=== PATIENT | male | born 1995 | race Caucasian/White ===

== ENCOUNTER 2017-07-02 18:05 | Emergency (ER) | payer OTHER ==
[2017-07-02] MEDS ORDERED: PROPARACAINE 0.5% 15 ML OPHT DROP ONE (18:11)
[2017-07-02] MEDS ORDERED: PROPARACAINE 0.5% 15 ML OPHT DROP LEFTEYE ONE (18:15)
[2017-07-02] MEDS ORDERED: FLUORESCEIN SODIUM 1 MG STRIP OP ONE (18:20)
--- NOTE | 2017-07-02 19:06 | EDPHY ---
H & P Stated Complaint: Solder in left eye Time Seen by Provider: 07/02/17 18:56 HPI/ROS: CHIEF COMPLAINT: Solder in left eye HISTORY OF PRESENT ILLNESS: The patient is a healthy 22 y/o male who arrives with his friend complaining of left eye pain and blurry vision after getting solder in his eye at work. He was soldering in the ceiling hanging upside down and solder fell into his eye. He was not wearing safety glasses. He had immediate pain and blurry vision in his left eye. Associated with excessive tearing. He denies any other injuries. He is normally healthy. - Personal History Current Tetanus Diphtheria and Acellular Pertussis (TDAP): Unsure - Medical/Surgical History PMH: Denies Hx Asthma: No Hx Chronic Respiratory Disease: No Hx Diabetes: No Hx Cardiac Disease: No Hx Renal Disease: No Hx Cirrhosis: No Hx Alcoholism: No Hx HIV/AIDS: No Hx Splenectomy or Spleen Trauma: No Other PMH: Ortho - Social History Smoking Status: Current every day smoker Additional Social History: Smoker. This injury occurred while at work. Friend at bedside. - Physical Exam Exam: General Appearance: Alert, appears in pain Eyes: Visual Acuity: 20/50 left eye - from Nurse's notes. Lids: no proptosis, no periorbital erythema or swelling, no vesicles Conjunctivae: Erythema on left, no discharge Pupils: equal round and reactive to light EOMI Cornea: Left eye: Irregularly-shaped piece of solder extending from 9 o'clock position to 12 o'clock position on cornea, does not cover pupil. Slit lamp exam deferred to ophthalmology. Respiratory: Normal respiratory rate Neurological: A&O, nonfocal Skin: Warm and dry, no rash Psychiatric: Mood and affect normal Constitutional: Initial Vital Signs Temperature (C) 37.4 C 07/02/17 18:07 Heart Rate 101 H 07/02/17 18:07 Respiratory Rate 18 07/02/17 18:07 Blood Pressure 159/108 H 07/02/17 18:07 O2 Sat (%) 99 07/02/17 18:07 O2 Delivery Mode Room Air Allergies/Adverse Reactions: No Known Allergies Allergy (Unverified 07/02/17 18:13) Home Medications: Medication Instructions Recorded Hydrocodone/APAP 5/325 [[place] 1 - 2 tab PO Q4H PRN #15 tab 07/02/17 5/325] Medical Decision Making ED Course/Re-evaluation: This is a healthy 22 y/o male who presents with a large piece of solder in his left cornea with associated pain and blurred vision. No evidence of globe disruption. Proparacaine drops and PO [place] administered for pain. Plan to consult ophthalmology prior to manual removal of metal. 1909: Consulted with Dr. Carney, ophthalmology. He will review images and call me back. 1916: Consulted with Dr. Carney. He will come into the ED and remove the solder. 1934: Dr. Carney is assessing patient in the ED currently. Dr. Carney was able to remove metal from patient's eye. Patient will be discharged with erythromycin drops and [place] for pain. He's also been advised to take ibuprofen. He understands he needs to follow up with ophtho without fail on Thursday. He also understands he needs to talk with his company's HR department regarding possible workman's comp follow up. Return precautions discussed. He agrees with plan for discharge. Differential Diagnosis: Differential diagnosis includes hyphema, acute iritis, traumatic mydriasis, corneal abrasion, globe rupture. - Data Points Medications Given: Discontinued Medications Hydrocodone Bitart/Acetaminophen ([place] 5/325) 2 tab PO EDNOW ONE Stop: 07/02/17 19:45 Last Admin: 07/02/17 19:47 Dose: 2 tab Hydrocodone Bitart/Acetaminophen ([place] 5/325mg Prepack#6) 1 btl TAKEHOME EDNOW ONE Stop: 07/02/17 20:06 Last Admin: 07/02/17 20:11 Dose: 1 btl Erythromycin (Erythromycin 0.5%) 1 bonita LEFTEYE EDNOW ONE Stop: 07/02/17 19:28 Last Admin: 07/02/17 19:40 Dose: 1 bonita Proparacaine HCl (Alcaine 0.5%) 1 drops LEFTEYE ONCE ONE Stop: 07/02/17 18:16 Last Admin: 07/02/17 18:17 Dose: 1 drop Departure - Departure Disposition: Home, Routine, Self-Care Clinical Impression: Corneal burn Qualifiers: Encounter type: initial encounter Laterality: left Qualified Code(s): T26.12XA - Burn of cornea and conjunctival sac, left eye, initial encounter Corneal foreign body Qualifiers: Encounter type: initial encounter Laterality: left Qualified Code(s): T15.02XA - Foreign body in cornea, left eye, initial encounter Condition: Good Instructions: Hydrocodone/Acetaminophen (By mouth), Erythromycin (Into the eye) , Corneal Abrasion (ED) Additional Instructions: 1. Apply erythromycin drops directly into affected eye 4 times daily. 2. Take 600mg ibuprofen every 6-8 hours for the next 3-4 days. 3. Use [place] only as needed for severe pain. 4. Follow up with Dr. Carney, ophthalmology, on Thursday without fail. 5. Return to the ED for any worsening of condition. 6. Call your employer's HR department to determine other appropriate follow up. 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 Carney for continuity of your care. Referrals: JASON VELA [Other] - As per Instructions Verito Carney MD [Medical Doctor] - As per Instructions Prescriptions: Hydrocodone/APAP 5/325 [[place] 5/325] 1 - 2 tab PO Q4H PRN #15 tab PRN Reason: Pain, Moderate Report Scribed for: Brie Zurita Report Scribed by: Gogo Moore Date of Report: 07/02/17 Time of Report: 19:10 Physician Review and Approval Statement: 07/02/17 19:10 Portions of this note were transcribed by a medical reimbursement manager. I personally performed a history, physical exam, medical decision making, and confirmed accuracy of information the transcribed note.
[2017-07-02] MEDS ORDERED: ERYTHROMYCIN 0.5% 1 GM OPHT.OINT LEFTEYE ONE (19:27)
[2017-07-02] MEDS ORDERED: HYDROCODONE/APAP 5/325 TAB PO ONE ×2 (19:29→19:44)
[2017-07-02] MEDS ORDERED: HYDROCOD/APAP 5/325 PREPACK#6 BTL TAKEHOME ONE (20:05)
[2017-07-02 20:21] VITALS: BP 123/84; PULSE 68; RESP 16; TEMP 98.6; O2SAT 95
--- NOTE | 2017-07-05 13:42 | GCON ---
[f rep st] CONSULTATION DATE OF CONSULTATION: 07/02/2017 CHIEF COMPLAINT: Metal solder in the left eye. 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 He was not wearing safety glas ses. He denies any other injuries. REASON FOR CONSULTATION: Solder still present in the eye, upon evaluation in the emergency [facility]. PAST OCULAR HISTORY: None. The patient reports good vision without correction prior to injury. PAST MEDICAL HISTORY: None. SOCIAL HISTORY: Current everyday smoker. MEDICATIONS: None. ALLERGIES: None. PHYSICAL EXAMINATION: GENERAL: Alert and oriented. OCULAR: Visual acuity: 20/50 with correction at distance per nurse's report, left eye. Lids: No t rauma. Conjunctiva erythema and ecchymosis, left eye. Cornea irregular with metal solder stuck to t he superonasal cornea, not involving the central cornea. Fluorescein staining shows fluorescein upta ke in the superior conjunctiva and superior cornea. Apart from the metal area, there is some loose c ornea epithelium, with epithelia edema. The anterior chamber in the left eye is quite, and pupils no rmal and round, with no afferent pupillary defect. The remainder of his physical examination is normal. ASSESSMENT: Metal solder on the surface of the left eye with ocular surface burn. There is no deep tissue damage. PLAN AND PROCEDURE: After a drop of proparacaine in the left eye, forceps were used to remove 2 piec es of solder from the ocular surface, without complications. The eye was then examined with addition al fluorescein staining. There was no additional foreign body seen. Erythromycin ointment was appli ed to the left eye. The patient was instructed to use erythromycin ointment 4 times a day in the lef t eye, and with ophthalmology exam in 2 days. The findings and plan were related to the emergency de partment physician. /[id number]/MODL
== END 2017-07-02 20:21 | disposition home or self-care (01) ==
DX: T26.12XA Burn of cornea and conjunctival sac, left eye, initial encounter (principal); T15.02XA Foreign body in cornea, left eye, initial encounter; F17.200 Nicotine dependence, unspecified, uncomplicated; X19.XXXA Contact with other heat and hot substances, initial encounter; Y92.69 Other specified industrial and construction area as the place of occurrence of the external cause; Y99.0 Civilian activity done for income or pay; Y93.89 Activity, other specified